=== PATIENT | male | born 1980 | race Caucasian/White ===

== ENCOUNTER 2023-06-21 10:07 | Emergency (ER) | payer MEDICAID, SELFPAY ==
[2023-06-21 10:19] VITALS: BP 117/75; PULSE 79; RESP 15; TEMP 36.6; O2SAT 93; BMI 38.5
--- NOTE | 2023-06-21 11:13 | W.ED.NAVMDI ---
HPI - Nausea/Vomiting/Diarrhea General: Chief complaint: Nausea/Vomiting/Diarrhea Stated complaint: dizzy, diarrhea Time Seen by Provider: 06/21/23 10:56 History of Present Illness: Presents ER with 1 week straight of diarrhea. Patient states nothing makes it better but eating makes it worse. Patient has had this since he went [place] of [facility] about a week ago. Patient said everything he eats runs through him immediately. Patient is never had this before. No one else that he knows has similar episodes. Review of Systems General: Reports: 10 or more systems reviewed and unremarkable except in HPI and below Physical Exam Const: COMMON NORMALS: no acute distress, average body habitus, patient oriented x3, no limitations, healthy appearing, alert and well nourished HENMT: COMMON NORMALS: normocephalic, atraumatic, hearing grossly normal bilaterally, external ears normal, EAC's normal, Normal external nose present and moist oral mucous membranes HEAD & SCALP: normocephalic and atraumatic NOSE: Normal external nose present EXTERNAL EAR: Yes external ears normal EXTERNAL AUDITORY CANAL: EAC's normal Neck/C-Spine: COMMON NORMALS: full ROM, no lymphadenopathy, no meningeal signs, no JVD and Thyroid normal THYROID: Thyroid normal Lymph: LYMPHATIC: no lymphadenopathy noted Chest: COMMONS NORMALS: normal inspection of the chest and normal palpation of entire chest wall Resp: COMMON NORMALS: normal respiratory effort, No retractions, No use of accessory muscles and clear to auscultation bilaterally AUSCULTATION: clear to auscultation bilaterally Cardio: COMMON NORMALS: no JVD, regular rate, regular rhythm, S1 normal heart sound present, S2 normal heart sound present, No gallops present (Cardio), No clicks present (Cardio), No murmurs present (Cardio) and No rub (Cardio) RATE: regular rate RHYTHM: regular rhythm HEART SOUNDS: S1 normal heart sound present and S2 normal heart sound present GI: COMMON NORMALS: Normal to inspection, nondistended, normoactive bowel sounds present, Soft to palpation, non-tender, No hepatosplenomegaly present and no masses PALPATION: Yes Soft to palpation and Yes No hepatosplenomegaly present : COMMON NORMALS: Yes no CVA tenderness BLADDER/KIDNEY EXAM: Yes no CVA tenderness Back/Pelvis: COMMON NORMALS: no CVA tenderness Neuro: COMMON NORMALS: patient oriented x3 SENSORIUM/ORIENTATION: Yes alert MENINGEAL SIGNS: Yes no meningeal signs Course Vital Signs: Vital signs: Vital Signs Temperature 97.8 F 06/21/23 10:19 Pulse Rate 79 06/21/23 10:19 Respiratory Rate 15 06/21/23 10:19 Blood Pressure 117/75 06/21/23 10:19 Pulse Oximetry 93 06/21/23 10:19 Oxygen Delivery Me thod Room Air 06/21/23 10:19 MDM - Nausea/Vomiting/Diarrhea Medical Decision Making Patient presents with gastroenteritis times last week or so. Patient's had multiple bouts of diarrhea in the ER. Stool panel is pending. Patient will be discharged home and we will call him with any positive findings. Differential Diagnosis Likely traveler's diarrhea and gastroenteritis; Unlikely food poisoning, clostridium difficile infection, drug-induced nausea and vomiting or dehydration Medical Records I reviewed the patient's medical records. Lab Data I reviewed the patient's lab results. Discharge Plan Discharge Patient Disposition: Home Clinical Impression: Gastroenteritis Condition: Stable Prescriptions: No Action No Known Home Medications Discharge Orders: Discharge ED (Routine); Ordered 06/21/23 Ordered By: Jarrett Leo Patient Instructions: Gastroenteritis (ED) Activity Restrictions/Additional Instructions: Your stool panel results are pending we we will call you with any positive results. This should be within the next couple hours. Coding Level of Care Code ED General Studies Program Chair for Herlinda Branham
== END 2023-06-21 14:57 | disposition home or self-care (01) ==
PROVIDERS: Emergency Provider Emergency Medicine
DX: K52.9 Noninfective gastroenteritis and colitis, unspecified (principal)
CPT/HCPCS: 82274; 83630; 87493; 87506; 99283

== ENCOUNTER 2023-06-22 19:50 | Emergency (ER) | payer MEDICAID, SELFPAY ==
[2023-06-22 19:59] VITALS: BP 132/83; PULSE 75; RESP 18; TEMP 36.6; O2SAT 94
[2023-06-22 20:23] LABS: Basophils # 0.1 10^3/uL (0.0-0.1); Basophils % 0.4 %; Eosinophils # 0.2 10^3/uL (0.0-0.8); Eosinophils % 1.6 %; Lymphocytes # 2.5 10^3/uL (0.8-4.8); Lymphocytes % 20.6 %; Mean Corpuscular HGB Conc 34.3 g/dL (30-55); Mean Corpuscular Volume 93.1 fl (82-101); Mean Platelet Volume 9.7 fL (7.4-10.4); Monocytes # 0.7 10^3/uL (0.2-0.9); Neutrophils # 8.49 10^3/uL (1.8-7.7); Nucleated Red Blood Cells % 0 %; Platelet Count 264 10^3/cmm (157-399); Red Blood Count 4.94 10^6/uL (3.85-5.65); Red Cell Distribution Width 12.8 % (12.1-15.1); White Blood Count 11.96 10^3/uL (3.29-11.43)
[2023-06-22 20:55] LABS: Alanine Aminotransferase 29 U/L (0-41); Alkaline Phosphatase 81 U/L (40-130); Anion Gap 17.5 (5-19); Blood Urea Nitrogen 15 mg/dL (6-20); Calcium 8.9 mg/dL (8.5-10.5); Carbon Dioxide 24 mmol/L (22-29); Chloride 102 mmol/L (98-107); Globulin 3.2 g/dL (1.3-4.6); Glomerular Filtration Rate 72.4 mL/min (90-130); Glucose 124 mg/dL (65-115); Osmolality Calculated 292 mOsm/kg (285-295); Potassium 3.5 mmol/L (3.5-5.1); Sodium 140 mmol/L (136-145); Total Bilirubin 0.4 mg/dL (0.15-1.2); Total Protein 7.2 g/dL (6.6-8.7)
[2023-06-22 20:58] LABS: Aspartate Amino Transferase 20 U/L (0-40)
--- NOTE | 2023-06-22 21:01 | PC.NURSE ---
Pt stated that he was seen at this facility yesterday for same issue. Pt stated that nursing staff were given a stool sample, and at this time refuses to produce a stool sample since [facility] should have results from previous stool sample on file. Dr Leo was notified of pt statement.
--- NOTE | 2023-06-22 21:21 | W.ED.NAVMDI ---
HPI - Nausea/Vomiting/Diarrhea General: Chief complaint: Nausea/Vomiting/Diarrhea Stated complaint: Diah For Week Time Seen by Provider: 06/22/23 20:53 History of Present Illness: Presents to the ER with complaints of diarrhea for the last week. Patient was seen yesterday in the ER by myself and actually had a stool panel done and he was discharged before the results came back and per the patient we never called him with results. The results were negative. Patient today had a CBC and a CMP and a magnesium ana are pending of the results. Review of Systems General: Reports: 10 or more systems reviewed and unremarkable except in HPI and below Physical Exam Const: COMMON NORMALS: no acute distress, average body habitus, patient oriented x3, no limitations, healthy appearing, alert and well nourished HENMT: COMMON NORMALS: normocephalic, atraumatic, hearing grossly normal bilaterally, external ears normal, Normal external nose present and moist oral mucous membranes HEAD & SCALP: normocephalic and atraumatic NOSE: Normal external nose present EXTERNAL EAR: Yes external ears normal Neck/C-Spine: COMMON NORMALS: no JVD Chest: COMMONS NORMALS: normal inspection of the chest and normal palpation of entire chest wall Resp: COMMON NORMALS: normal respiratory effort, No retractions, No use of accessory muscles and clear to auscultation bilaterally AUSCULTATION: clear to auscultation bilaterally Cardio: COMMON NORMALS: no JVD, regular rate, regular rhythm, S1 normal heart sound present, S2 normal heart sound present, No gallops present (Cardio), No clicks present (Cardio), No murmurs present (Cardio) and No rub (Cardio) RATE: regular rate RHYTHM: regular rhythm HEART SOUNDS: S1 normal heart sound present and S2 normal heart sound present GI: COMMON NORMALS: Normal to inspection, nondistended, normoactive bowel sounds present, Soft to palpation, non-tender, No hepatosplenomegaly present and no masses PALPATION: Yes Soft to palpation and Yes No hepatosplenomegaly present : COMMON NORMALS: Yes no CVA tenderness BLADDER/KIDNEY EXAM: Yes no CVA tenderness Back/Pelvis: COMMON NORMALS: no CVA tenderness Neuro: COMMON NORMALS: patient oriented x3 SENSORIUM/ORIENTATION: Yes alert Course Vital Signs: Vital signs: Vital Signs Temperature 97.9 F 06/22/23 19:59 Pulse Rate 75 06/22/23 19:59 Respiratory Rate 18 06/22/23 19:59 Blood Pressure 132/83 06/22/23 19:59 Pulse Oximetry 94 06/22/23 19:59 Oxygen Delivery Me thod Room Air 06/22/23 19:59 MDM - Nausea/Vomiting/Diarrhea Medical Decision Making Patient presents to the ER for the second time in 2 days for chronic diarrhea over the last week. Patient has stool panel done yesterday which was all negative. Patient is CBC CMP magnesium today. His LOPEZ is pending but the other 2 are back and only thing significant was his white count was very mildly elevated 11.96 I had a long talk with the patient about the results and about physical exam findings. I feel the patient probably needs to go to a GI doctor for further testing. And since this is does not appear to be infectious in nature we will prescribe the patient some Lomotil. Patient will be referred to case management for referral process. Differential Diagnosis Likely gastroenteritis; Unlikely traveler's diarrhea, food poisoning, clostridium difficile infection, drug-induced nausea and vomiting or dehydration Medical Records I reviewed the patient's medical records. Lab Data I reviewed the patient's lab results. 06/22/23 20:14 06/22/23 20:14 Laboratory Results WBC 11.96 10^3/uL (3.29-11.43) H 06/22/23 20:14 RBC 4.94 10^6/uL (3.85-5.65) 06/22/23 20:14 Hgb 15.80 g/dL (11.27-16.99) 06/22/23 20:14 Hct 46.0 % (37-53) 06/22/23 20:14 MCV 93.1 fl (82-101) 06/22/23 20:14 MCH 32.0 pg (27-33) 06/22/23 20:14 MCHC 34.3 g/dL (30-55) 06/22/23 20:14 RDW 12.8 % (12.1-15.1) 06/22/23 20:14 Plt Count 264 10^3/cmm (157-399) 06/22/23 20:14 MPV 9.7 fL (7.4-10.4) 06/22/23 20:14 Neut % (Auto) 71.0 % 06/22/23 20:14 Lymph % (Auto) 20.6 % 06/22/23 20:14 Benson % (Auto) 6.0 % 06/22/23 20:14 Eos % (Auto) 1.6 % 06/22/23 20:14 Baso % (Auto) 0.4 % 06/22/23 20:14 Neut # (Auto) 8.49 10^3/uL (1.8-7.7) H 06/22/23 20:14 Lymph # (Auto) 2.5 10^3/uL (0.8-4.8) 06/22/23 20:14 Benson # (Auto) 0.7 10^3/uL (0.2-0.9) 06/22/23 20:14 Eos # (Auto) 0.2 10^3/uL (0.0-0.8) 06/22/23 20:14 Baso # (Auto) 0.1 10^3/uL (0.0-0.1) 06/22/23 20:14 Nucleated RBC % (auto) 0 % 06/22/23 20:14 Nucleated RBCs # 0.0 /100WBC 06/22/23 20:14 Sodium 140 mmol/L (136-145) 06/22/23 20:14 Potassium 3.5 mmol/L (3.5-5.1) 06/22/23 20:14 Chloride 102 mmol/L (98-107) 06/22/23 20:14 Carbon Dioxide 24 mmol/L (22-29) 06/22/23 20:14 Anion Gap 17.5 (5-19) 06/22/23 20:14 BUN 15 mg/dL (6-20) 06/22/23 20:14 Creatinine 1.1 mg/dL (0.7-1.2) 06/22/23 20:14 GFR Calculation 72.4 mL/min (90-130) L 06/22/23 20:14 Glucose 124 mg/dL (65-115) H 06/22/23 20:14 Calculated Osmolality 292 mOsm/kg (285-295) 06/22/23 20:14 Calcium 8.9 mg/dL (8.5-10.5) 06/22/23 20:14 Total Bilirubin 0.4 mg/dL (0.15-1.2) 06/22/23 20:14 AST 20 U/L (0-40) 06/22/23 20:14 ALT 29 U/L (0-41) 06/22/23 20:14 Alkaline Phosphatase 81 U/L (40-130) 06/22/23 20:14 Total Protein 7.2 g/dL (6.6-8.7) 06/22/23 20:14 Albumin 4.0 g/dL (3.5-5.2) 06/22/23 20:14 Globulin 3.2 g/dL (1.3-4.6) 06/22/23 20:14 Discharge Plan Discharge Patient Disposition: Home Clinical Impression: Gastroenteritis Condition: Stable Prescriptions: New Lomotil 2.5-0.025 mg tablet 1 tab PO Q6H PRN (Reason: diarrhea) Qty: 20 0RF No Action No Known Home Medications Discharge Orders: Discharge ED (Routine); Ordered 06/22/23 Ordered By: Jarrett Leo Patient Instructions: Gastroenteritis (ED) Activity Restrictions/Additional Instructions: Take all medicine as directed as needed for diarrhea. Please push plenty of fluids. You have been referred to case management for referral to a GI doctor for colonoscopy. They are usually very quick and response so anticipate a call from them tomorrow. If you have not received a call 24 hours please call us back. Coding Level of Care Code ED Workforce Development Program Director for Herlinda Branham
[2023-06-22 21:37] VITALS: BP 114/74; PULSE 74; RESP 18; O2SAT 94
[2023-06-22 21:43] LABS: Magnesium 1.9 mg/dL (1.7-2.3)
--- NOTE | 2023-06-23 08:54 | DCPLANNER ---
Addendum entered by Calli Lawrence 06/30/23 11:01: Patient did attend appointment scheduled with general surgery Addendum entered by Calli Lawrence 06/23/23 12:27: Patient has a follow up appointment scheduled for Tuesday, June 27, 2023 at 8:[address] Berry at general surgery. Original Note: on site manager had message to schedule a follow up appointment for patient with general surgery. on site manager sent patients information to the front office staff at general surgery. Patients information will be printed and reviewed. Clinic will call patient with appointment information.
== END 2023-06-22 21:48 | disposition home or self-care (01) ==
PROVIDERS: Emergency Medicine; Emergency Provider Emergency Medicine
DX: K52.9 Noninfective gastroenteritis and colitis, unspecified (principal)
CPT/HCPCS: 36415; 80053; 83735; 85025; 99283